=== PATIENT | female | born 2005 | race Caucasian/White ===

== ENCOUNTER 2025-03-03 09:55 | Emergency (ER) | payer SELFPAY ==
[2025-03-03 09:56] VITALS: BP 122/81
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
== END 2025-03-03 11:43 | disposition home or self-care (01) ==
LOC: EMR 09:55
PROVIDERS: EMERGENCY PHYSICIAN Emergency Medicine; FAMILY PHYSICIAN Internal Medicine
DX: S39.012A Strain of muscle, fascia and tendon of lower back, initial encounter (principal); S16.1XXA Strain of muscle, fascia and tendon at neck level, initial encounter; V44.5XXA Car driver injured in collision with heavy transport vehicle or bus in traffic accident, initial encounter; Y92.488 Other paved roadways as the place of occurrence of the external cause; Z91.048 Other nonmedicinal substance allergy status; J45.909 Unspecified asthma, uncomplicated
CPT/HCPCS: 99282

== ENCOUNTER → 2025-03-07 13:26 | Outpatient (REF) | payer OTHER, SELFPAY | LOC: HWRAD 13:26 | PROVIDERS: ATTENDING PHYSICIAN Internal Medicine | DX: M54.9 Dorsalgia, unspecified (principal); V89.2XXA Person injured in unspecified motor-vehicle accident, traffic, initial encounter | CPT/HCPCS: 72050; 72072; 72110 ==